=== PATIENT | female | born 1940 | race Caucasian/White ===

== ENCOUNTER 2017-08-20 06:23 | Observation (INO) | payer MEDICARE ==
[2017-08-20 07:14] LABS: #Eosinphils 0.1 thou/uL (0.0-0.7); #Lymphocytes 2.1 thou/uL (1.20-3.40); #Monocytes 0.7 thou/uL (0.11-0.59); %Basophils 0.6 % (0.0-1.0); %Eosinophils 1.7 % (0.0-10.0); %Monocytes 9.9 % (0.0-10.0); Hematocrit 38.4 % (36.0-47.0); Mean Platelet Volume 7.5 fL (7.4-10.4); Red Blood Cell (RBC) Count 3.86 mill/uL (4.20-5.40); White Blood Cell (WBC) Count 6.9 thou/uL (4.8-10.8)
[2017-08-20 07:36] LABS: ALT (SGPT) 18 U/L (8-55); AST (SGOT) 20 U/L (5-34); Alkaline Phosphatase 60 U/L (40-150); Anion Gap 10 mmol/L (10-20); BUN (Urea Nitrogen) 13 mg/dL (9.8-20.1); Bilirubin, Total 0.4 mg/dL (0.2-1.2); CK (CPK) 135 U/L (29-168); Calc. Creatinine Clearance 0 mL/min (70-130); Calcium 8.8 mg/dL (7.8-10.44); Carbon Dioxide 29 mmol/L (23-31); Chloride 105 mmol/L (98-107); Estimated GFR-MDRD 69; Globulin 2.7 g/dL (2.4-3.5); Lipase 14 U/L (8-78); Protein, Total 6.7 g/dL (6.0-8.3)
[2017-08-20 07:39] LABS: Troponin I Less than 0.010 ng/mL (< 0.028)
--- NOTE | 2017-08-20 08:20 | CT ---
CT OF BRAIN PERFORMED WITHOUT CONTRAST ENHANCEMENT: History: Headache, dizziness, and weakness. FINDINGS: There is age appropriate ventricular and sulcal prominence. There are no signs of intracerebral hemor rhage or extraaxial fluid collections. Mastoid air cells are clear. Mucosal changes noted in the ethm oid and maxillary sinuses. IMPRESSION: No acute intracranial abnormalities. POS: [facility]
--- NOTE | 2017-08-20 08:29 | RAD ---
PORTABLE CHEST: Date: 08-20-17 Provided Clinical History: Hypertension. FINDINGS: No comparison examinations are currently available. The cardiac silhouette appears mildly prominent w hich is likely at least partially on the basis of portable technique. Atherosclerosis is demonstrated . No definite focal consolidation, pleural fluid or pneumothorax apparent. If there is persistent cli nical concern, follow up PA and lateral views of the chest are recommended. IMPRESSION: As above. POS: [facility]
[2017-08-20] MEDS ORDERED: Aspirin 325 MG TAB ONE (09:21)
[2017-08-20 10:42] LABS: Magnesium 2.1 mg/dL (1.6-2.6); Phosphorus 3.3 mg/dL (2.3-4.7)
[2017-08-20 10:48] LABS: Troponin I 0.021 ng/mL (< 0.028)
--- NOTE | 2017-08-20 10:49 | CT ---
CT ANGIO NECK AND CT ANGIO HEAD: Date: 08/20/17 HISTORY: TIA. FINDINGS: CT ANGIO OF NECK: Multiple axial tomograms obtained through neck with angio protocol with multiplanar reconstructions a nd 3D postprocessing. There is common origin of the innominate and left common carotid at the arch. No stenosis at this [place]. Both common carotids are patent throughout their course with no stenosis or significant atherosclerot ic disease. On the left, there is atherosclerotic calcified plaque at the left bulb extending into the proximal l eft ICA. This produces mild stenosis in the proximal left ICA; however, the degree of stenosis does n ot appear to be hemodynamically significant by NASCET criteria (less than 50% diameter). The left ICA above the bulb is unremarkable. On the right, there is mild atherosclerotic change in the right bulb and proximal ICA. There is no st enosis seen in the right extracranial ICA> Vertebral arteries are patent. There is a dominant left vertebral. Soft Tissues: There is a heterogeneous mass involving the left lobe of the thyroid with numerous areas of low atten uation which may represent some internal cystic components. This mass is measured up to 3.5 cm AP dim ension x 3.2 cm width in the axial plane. Recommend ENT consultation and consider biopsy. Prior anterior fusion procedure in the cervical spine at C5, C6, and C7. Degenerative changes in the cervical spine. IMPRESSION: 1. Mild atherosclerotic change at the left bulb and proximal left ICA; however, no evidence of hemod ynamically significant stenosis. 2. Large, heterogeneous mass involving left lobe of thyroid. Recommend further evaluation. CT ANGIO OF HEAD: Multiple axial tomograms obtained through the head with arterial phase enhancement following angio pr otocol with multiplanar reconstructions and 3D postprocessing. The intracranial internal carotid arteries are patent with mild atherosclerotic change. The anterior cerebral arteries appear unremarkable. The middle cerebral arteries are patent. Peripheral branches appear symmetric. No evidence of focal s tenosis or occlusion. Basilar arteries patent. Posterior cerebral arteries patent. communication on the right is note d. IMPRESSION: Unremarkable CT angio of cerebral circulation. POS: [facility]
[2017-08-20] MEDS ORDERED: Polyethylene Glycol 3350 17 GM Packet PO PRN (10:56)
[2017-08-20] MEDS ORDERED: Calcium Carbonate 500 MG ChewTAB PO PRN (10:56)
[2017-08-20] MEDS ORDERED: Loratadine 10 MG TAB PO PRN (10:56)
[2017-08-20] MEDS ORDERED: Labetalol HCl 100 MG/20 ML VIAL SLOW IVP PRN (10:56)
[2017-08-20] MEDS ORDERED: Ondansetron HCl/PF 4 MG/2 ML Vial IVP PRN (10:56)
[2017-08-20] MEDS ORDERED: Acetaminophen 325 MG TAB PO PRN (10:56)
[2017-08-20] MEDS ORDERED: Eucerin (Mineral Oil/Petrolatum,White) 30 gm Jar TOP PRN (10:56)
[2017-08-20] MEDS ORDERED: Ondansetron ODT 4 MG TAB PO PRN (10:56)
[2017-08-20] MEDS ORDERED: hydrALAZINE 20 MG/ML VIAL SLOW IVP PRN (10:56)
[2017-08-20] MEDS ORDERED: Nitroglycerin 0.4 MG TAB (25 Tab Bottle) PO PRN (10:56)
[2017-08-20] MEDS ORDERED: Mag-Al 1200 mg/1200 mg/30 ML UDCUP PO PRN (10:56)
[2017-08-20] MEDS ORDERED: Senokot 8.6 MG TAB PO PRN (10:56)
[2017-08-20] MEDS ORDERED: Sodium Chloride 0.9% 1,000 ML IV SCH (10:56)
[2017-08-20 12:23] VITALS: BMI 24.7
[2017-08-20] MEDS ORDERED: Lorazepam 1 MG TAB PO SCH (12:30)
[2017-08-20] MEDS ORDERED: Lorazepam 1 MG TAB PO PRN (12:59)
[2017-08-20] MEDS ORDERED: Bisoprolol Fumarate/HCTZ 10 mg/6.25 mg Tablet PO SCH (13:30)
[2017-08-20] MEDS ORDERED: ISOVUE-370 76%-LOCM 1 ML ONE (15:41)
--- NOTE | 2017-08-20 16:00 | HP ---
DATE OF ADMISSION: 08/20/2017 PRIMARY CARE PHYSICIAN: Gail Garcia D.O. CHIEF COMPLAINT: Stroke-like symptoms. HISTORY OF PRESENT ILLNESS: Patient is a 77-year-old female with hypertension with ongoing tobacco abuse who presented to the emergency room with sudden onset of dizziness and vertigo that started this morning when she woke up around 4:30 a.m. She had difficulty balancing herself. She felt generally weak ; however, denies any focal deficits. No double vision, blurring of vision, tinnitus, hearing loss, sensory deficits or fall reported. No headache, loss of consciousness or palpitations reported. She recently had cold. She recently had upper respiratory tract infection. No similar symptoms in the past. She continues to have same symptoms; however, overall her symptoms are improving. She checked her blood pressure at home this morning which was 195/ 90. She called EMS. In the emergency room, her initial vital signs showed temperature 97.7, respirations 16, pulse of 59, blood pressure of 186/93 with O2 saturation of 96 % on room air. Initial brain CT scan was negative for acute findings. CT angiogram of the head and neck was negative for significant stenosis. She received aspirin in the emergency room. Please note that patient takes aspirin 81 mg on a daily basis. PAST MEDICAL HISTORY: 1. Hypertension. 2. Hypothyroidism. 3. Ongoing tobacco dependence. PAST SURGICAL HISTORY: Neck surgery, low back surgery, breast augmentation, right heel surgery, cholecystectomy, hysterectomy, and thyroidectomy. ALLERGIES: Statins CURRENT HOME MEDICATIONS: Aspirin 81 mg daily, bisoprolol/HCTZ 10/6.25 daily, Biotin 1 mg daily, aspirin 81 mg daily, vitamin D3 500 units daily, and levothyroxine 25 mcg daily. SOCIAL HISTORY: Patient continues to smoke less than half pack a day for more than 20 years. No alcohol or drug use. She is FULL CODE. Makes her own decisions with the help of her family. FAMILY HISTORY: Father had coronary artery bypass grafting when he was in the 70s. REVIEW OF SYSTEMS: The following complete review of systems was negative, unless otherwise mentioned in the HPI or below: Constitutional: Weight loss or gain, ability to conduct usual activities. Skin: Rash, itching. Eyes: Double vision, pain. ENT/Mouth: Nose bleeding, neck stiffness, pain, tenderness. Cardiovascular: Palpitations, dyspnea on exertion, orthopnea. Respiratory: Shortness of breath, wheezing, cough, hemoptysis, fever or night sweats. Gastrointestinal: Poor appetite, abdominal pain, heartburn, nausea, vomiting, constipation, or diarrhea. Genitourinary: Urgency, frequency, dysuria, nocturia. Musculoskeletal: Pain, swelling. Neurologic/Psychiatric: Anxiety, depression. Allergy/Immunologic: Skin rash, bleeding tendency. PHYSICAL EXAMINATION: VITAL SIGNS: As discussed above. GENERAL: A 77-year-old female in no apparent distress. HEENT: Head is atraumatic, normocephalic. Sclerae are anicteric. Moist mucous membrane, no oral lesion. NECK: Supple, no JVD appreciated. No carotid bruit. LUNGS: Clear to auscultation bilaterally. HEART: S1 and S2 present. Regular rate and rhythm. No murmurs, rubs or gallops appreciated. ABDOMEN: Soft, nontender, bowel sounds present. EXTREMITIES: No edema or calf tenderness. NEUROLOGIC: Grossly nonfocal, moves all four extremities. Power was 5/5 in all extremities. Vhnhkg-cv-oowx test was normal. PSYCHIATRIC: Alert, awake, oriented x3. SKIN: Warm and dry. LYMPH NODES: No palpable lymph nodes in the neck. PERIPHERAL VASCULAR: Radial pulses palpable bilaterally. MUSCULOSKELETAL: No joint swelling or tenderness. LABORATORY DATA AND IMAGIN. Fasting lipids showed LDL of 107, cholesterol of 174, vitamin B12 349, folic acid 10.6. Cardiac enzymes were normal. Electrolytes in normal range. CBC showed WBC 6.9 with hemoglobin 12.5. 2. EKG by my review showed sinus bradycardia without significant ST-T wave changes. 3. CT scan of the brain by my review as discussed above. Chest x-ray by my review was negative for infiltrate. IMPRESSION: 1. Transient ischemic attack. 2. Dizziness/vertigo secondary to #1. 3. Hypertension 4. Hyperlipidemia. 5. Hypothyroidism. 6. Ongoing tobacco dependence. 7. Chronic kidney disease stage 2. 8. Macrocytosis with low normal vitamin B12. The patient will be monitored in the stroke unit as a 23-hour observation. We will get an MRI of the brain as well as echocardiogram. CTA of the head and neck was negative for hemodynamically significant stenosis. We will continue aspirin for now. We will discuss with Neurology if aspirin needs to be changed to Plavix or Aggrenox. We will continue other home medications including levothyroxine and Bystolic. Gentle IV hydration due to contrast for CT angiogram of the head and neck. We will consult physical therapy and occupational therapy. Plan of care was discussed with the patient in detail. She stated understanding. No statins due to intolerance. MTDD
[2017-08-20] MEDS ORDERED: Atorvastatin Calcium 10 MG TAB PO SCH (21:00)
--- NOTE | 2017-08-20 23:10 | CON ---
DATE OF CONSULTATION: 08/20/2017 REFERRING PROVIDER: Arnoldo Lock M.D. REASON FOR CONSULTATION: Dizziness, vertigo. HISTORY OF PRESENT ILLNESS: Ms. Faith is a pleasant 77-year-old female who has been consid ered for evaluation of dizziness and vertigo. History is obtained from the patient as well as her da ughter. The patient reports that yesterday around 4:30 a.m. she woke up with the sudden onset of diz ziness and vertigo-type sensation. She had difficulty with balancing herself. She was having diffic ulty with walking and balance, which prompted her to present to the [facility] for fur ther evaluation. She did not have any headache, diplopia, blurry vision, loss of vision, tinnitus, h earing loss, numbness, tingling or weakness on face, upper and lower extremities. She states that wh en EMS arrived, her blood pressure was noted to be significantly elevated, it was noted to be 226 sys tolic with 105 diastolic. She states that her symptoms are getting better, although she does complai n of feeling uneasy at times. She has been walking back and forth to the bathroom without having any fall. PAST MEDICAL HISTORY: Significant for hypertension, hypothyroidism. PAST SURGICAL HISTORY: Significant for neck surgery, lower back surgery, breast augmentation, right heel surgery, cholecystectomy, hysterectomy, and thyroidectomy. CURRENT MEDICATIONS: Please review MAR. ALLERGIES: No known drug allergies. SOCIAL HISTORY: She smokes 1/2 pack per day. She denies alcohol or illicit drug use. REVIEW OF SYSTEMS: As mentioned in the HPI, otherwise negative. PHYSICAL EXAMINATION: VITAL SIGNS: Blood pressure 190/79, pulse of 49, temperature of 98.6, respirations of 18, O2 sats of 97% on room air. GENERAL: Well-developed, well-nourished female in no apparent distress. RESPIRATORY: Clear to auscultation bilaterally. CARDIOVASCULAR: Regular rate and rhythm. NEUROLOGIC: Mental status: The patient is awake, alert, oriented x3. Speech and language: Fluent speech. Cranial nerves: Pupils are 3 mm and reactive. Visual nichols are intact. Extraocular muscl es are intact. No nystagmus is noted. Face is symmetric. Tongue and uvula are midline. Motor exam showed normal tone and bulk with 5/5 strength in upper and lower extremities. Sensory: Sensation i s intact and symmetric. Deep tendon reflexes 2+ reflexes in both upper and lower extremities. Claudia ski: Plantar responses flexion bilaterally. Coordination intact to [id number]-[id number] tapping bilat erally. LABORATORY DATA: Reviewed, which included CBC, CMP, lipid profile, B12, folate, which is all essenti ally normal. IMPRESSION: 1. Hypertensive urgency. 2. Dizziness and vertigo, likely due to #1. ASSESSMENT AND PLAN: Ms. Faith is a pleasant 77-year-old female who presented with the epi sode of dizziness, vertigo, nausea. She had her blood pressure to be extremely high. It was noted b y EMS to have the blood pressure of 226/100, this is likely suggestive hypertensive emergency. At th is time, I would recommend continuing her on aspirin 81 mg daily for secondary stroke prevention. I would recommend obtaining MRI brain without contrast if MRI cannot be obtained due to machine being d own, then she can be discharged to home with outpatient appointment in my clinic and MRI can be done as an outpatient. Continue supportive care. Continue current medical management. I will be happy t o see the patient in my clinic post-discharge. Thank you for the consultation.
[2017-08-21] MEDS ORDERED: cloNIDine 0.1 MG TAB PO PRN (05:58)
[2017-08-21] MEDS ORDERED: Labetalol HCl 100 MG/20 ML VIAL SLOW IVP PRN (05:58)
[2017-08-21] MEDS ORDERED: hydrALAZINE 20 MG/ML VIAL SLOW IVP PRN (05:58)
[2017-08-21] MEDS ORDERED: Levothyroxine Sodium 25 MCG TAB PO SCH (06:00)
[2017-08-21] MEDS ORDERED: Enoxaparin Sodium 40 MG/0.4 ML SYRINGE SC SCH ×2 (09:00→21:00)
[2017-08-21] MEDS ORDERED: Aspirin 325 mg Enteric Coated Tablet PO SCH (09:00)
[2017-08-21] MEDS ORDERED: Bisoprolol Fumarate/HCTZ 10 mg/6.25 mg Tablet PO SCH (09:00)
[2017-08-21] MEDS ORDERED: NIFEdipine XL 30 MG TAB PO SCH (13:45)
--- NOTE | 2017-08-21 15:24 | DIS ---
DATE OF DISCHARGE: 08/21/2017 DISCHARGE DISPOSITION: Home. FOLLOWUP: 1. Follow up with primary care physician, Dr. Gail Garcia, in 1 week. 2. Follow up with Neurology, Dr. Oconnor. 3. Follow up with Dr. Nicci Lainez for blood pressure management. ALLERGIES: The patient is allergic to STATINS. The patient was seen and examined on the day of discharge. Denies any new complaints, no chest pain, shortness of breath, palpitations. No new focal deficits. DISCHARGE MEDICATIONS: 1. Amlodipine 5 mg daily. Patient was advised to increase the dose to twice a day if blood pressure remains uncontrolled. 2. Aspirin 81 mg daily. 3. Bisoprolol/HCTZ 5/6.25 (dose reduced). 4. Levothyroxine 25 mcg daily. 5. Vitamin D3 500 units daily. 6. Biotin 1 mg daily. INPATIENT CONSULTANTS: Neurology, Dr. Corina Oconnor. BRIEF HOSPITAL COURSE: The patient is a 77-year-old female with hypertension and hypothyroidism, who presented to the hospital with stroke-like symptoms. Her blood pressure at home was 195/90. Please refer to the history and physical dated 08/20/2017 for further details. The patient was admitted to the hospital with a diagnosis of hypertensive urgency with transient isch emic attack. Her initial CT scan of the brain was negative. CT angiogram of the head and neck was n egative for hemodynamically significant stenosis. Echocardiogram showed left ventricular ejection fr action of 60%-65% with diastolic dysfunction. There was also tpor-sp-ukwvonbm pulmonary regurgitatio n. She was seen by Neurology, Dr. Oconnor. Dr. Oconnor recommended to continue aspirin for now. MRI coul d not be done due to technical reasons. Patient will follow up with Dr. Oconnor as outpatient for follo wup as well as MRI. She has been cleared by Neurology for discharge. FINAL DIAGNOSES: 1. Transient ischemic attack. 2. Hypertensive urgency. 3. Dizziness/vertigo secondary to hypertensive urgency. 4. History of hypertension. 5. Hyperlipidemia. 6. Hypothyroidism. 7. Statin intolerance. 8. Ongoing tobacco dependence. The patient was counseled to quit smoking. 9. Chronic kidney disease, stage 2. 10. Macrocytosis. Plan of care was discussed with the patient. She stated understanding.
[2017-08-21 15:47] VITALS: TEMP 97.6
[2017-08-21 17:14] VITALS: BP 147/66
[2017-08-22] MEDS ORDERED: NIFEdipine XL 30 MG TAB PO SCH (09:00)
== END 2017-08-21 17:23 | disposition home or self-care (01) ==
LOC: ERS 06:23 → 2SE 10:04
PROVIDERS: ADMIT Internal Medicine; ATTEND Internal Medicine
DX: G45.9 Transient cerebral ischemic attack, unspecified (principal); I16.0 Hypertensive urgency; R42 Dizziness and giddiness; E78.5 Hyperlipidemia, unspecified; E03.9 Hypothyroidism, unspecified; I12.9 Hypertensive chronic kidney disease with stage 1 through stage 4 chronic kidney disease, or unspecified chronic kidney disease; N18.2 Chronic kidney disease, stage 2 (mild); D75.89 Other specified diseases of blood and blood-forming organs; F17.210 Nicotine dependence, cigarettes, uncomplicated; Z88.8 Allergy status to other drugs, medicaments and biological substances; Z79.82 Long term (current) use of aspirin; Z79.899 Other long term (current) drug therapy; Z90.49 Acquired absence of other specified parts of digestive tract; Z90.710 Acquired absence of both cervix and uterus; Z98.890 Other specified postprocedural states; Z82.49 Family history of ischemic heart disease and other diseases of the circulatory system
CPT/HCPCS: 70450; 70496; 70498; 71010; 80053; 80061; 82550; 82553; 82607; 82746; 83690; 83735; 84100; 84484 ×2; 85025; 93005; 93306; 94760; 96374; 97139 ×3; 99285; G0378; G8978; G8979; G8980; G8987; G8988; G8989; 36415; J0360

== ENCOUNTER 2017-09-08 10:00 | Outpatient (CLI) | payer MEDICARE ==
--- NOTE | 2017-09-08 14:39 | MRI ---
BRAIN MRI WITHOUT CONTRAST: Date: 09/08/17 HISTORY: Dizziness and numbness. Transient ischemic attack. COMPARISON: None. CORRELATION: CT angiogram of head dated 08/20/17. TECHNIQUE: Brain MRI is performed without intravenous Gadolinium administration. Multisequential, multiplanar im aging is performed. FINDINGS: Appropriate T1 marrow signal intensity of the calvarium. Midline brain parenchymal structures are unr emarkable. Central arterial flow-voids are maintained. Absent restricted diffusion. Minimal mucosal thickening of the paranasal sinuses. Adequate mastoid air cell aeration. There are scattered white matter hyperintensities on the axial T2 and FLAIR sequence due to chronic s mall vessel ischemic changes. No hemorrhage on the axial gradient echo sequence. Brain volume is age-appropriate. No parenchymal mass, mass effect, or midline shift. IMPRESSION: 1. No restricted diffusion. No acute infarction. 2. No hemorrhage. 3. Age-appropriate atrophy. 4. Chronic small vessel ischemic changes of the white matter. POS: [facility]
== END 2017-09-08 10:01 | disposition home or self-care (01) ==
LOC: TBSIIMAG 10:00
PROVIDERS: ATTEND Psychiatry & Neurology Neurology
DX: R42 Dizziness and giddiness (principal); R20.0 Anesthesia of skin; I67.82 Cerebral ischemia
CPT/HCPCS: 70551

== ENCOUNTER 2018-01-19 22:30 | Observation (INO) | payer MEDICARE ==
[2018-01-20 02:02] LABS: CKMB 1.8 ng/mL (0-6.6); Troponin I Less than 0.010 ng/mL (< 0.028)
[2018-01-20] MEDS ORDERED: Calcium Carbonate 500 MG ChewTAB PO PRN (03:55)
[2018-01-20] MEDS ORDERED: hydrALAZINE 20 MG/ML VIAL SLOW IVP PRN (03:55)
[2018-01-20] MEDS ORDERED: Loratadine 10 MG TAB PO PRN (03:55)
[2018-01-20] MEDS ORDERED: cloNIDine 0.1 MG TAB PO PRN (03:55)
[2018-01-20] MEDS ORDERED: Acetaminophen 325 MG TAB PO PRN (03:55)
[2018-01-20] MEDS ORDERED: Ondansetron HCl/PF 4 MG/2 ML Vial IVP PRN ×2 (03:55)
[2018-01-20] MEDS ORDERED: Diabetic Tussin 200 MG/10 ML UDCUP PO PRN (03:55)
[2018-01-20] MEDS ORDERED: Mag-Al 1200 mg/1200 mg/30 ML UDCUP PO PRN (03:55)
[2018-01-20] MEDS ORDERED: traMADol HCl 50 MG TAB PO PRN (03:55)
[2018-01-20] MEDS ORDERED: Nitroglycerin 0.4 MG TAB (25 Tab Bottle) SL PRN (03:55)
[2018-01-20] MEDS ORDERED: Senokot 8.6 MG TAB PO PRN (03:55)
[2018-01-20] MEDS ORDERED: Benzonatate 100 MG CAP PO PRN (03:55)
[2018-01-20] MEDS ORDERED: Bisacodyl 5 MG TAB PO PRN (03:55)
[2018-01-20 04:19] LABS: Troponin I Less than 0.010 ng/mL (< 0.028)
--- NOTE | 2018-01-20 07:42 | HP ---
PRIMARY CARE PHYSICIAN: Gail Gacria D.O. CHIEF COMPLAINT: Palpitations and chest discomfort. HISTORY OF PRESENTING ILLNESS: Ms. Faith is a 77-year-old female with past medical history of hypert ension, dyslipidemia, hypothyroidism, and statin intolerance, who came to the emergency room with abo ve-mentioned complaint. History is mainly obtained by the patient herself and electronic medical rec ords have been reviewed. She was last admitted to our facility in 07/2017 at which time she underwen t workup for TIA. At that time, she underwent evaluation with CT angio and echocardiogram, which were both unremarkable . She was found to have hypertensive urgency, but was quite bradycardic. Her bisoprolol/hydrochloro thiazide dose was decreased in half because of the bradycardia and Norvasc was increased for high blo od pressure. She came to the emergency room today with multiple days' complaint of palpitations. She reports that this has actually been ongoing since 09/2017. She describes as that a feeling of a faster heart rat e as well as missed beats and is associated with chest discomfort and some shortness of breath. She describes these symptoms as quite debilitating and happening almost on a daily basis. Her heart rate ; however, at home has been running in the 50s. She thinks that reducing the dose of her bisoprolol is responsible for these symptoms. She has contacted her primary care physician and was referred to Cardiology. She has an upcoming appointment with Dr. Dill on the 01/28. Because of persistent of these symptoms she, however, presented to the ER today. In the emergency room upon presentation, she was hemodynamically stable. She is noticed to be in bradycardia with heart rate anywhere from 48-60 s. Her initial evaluation included a chest x-ray which was unremarkable. A 12-lead EKG which shows sinus bradycardia, otherwise no acute changes. Blood work which is essentially unremarkable. She is now being admitted for further workup and rule out ACS because of her complaints of chest discomfort . PAST MEDICAL HISTORY: 1. Hypertension. 2. Dyslipidemia. 3. Statin intolerance. 4. Hypothyroidism. 5. Tobacco abuse. PAST SURGICAL HISTORY: Neck surgery, back surgery, breast augmentation, right heel surgery, cholecys tectomy, hysterectomy, and thyroidectomy. ALLERGIES: STATINS. SOCIAL HISTORY: She has smoked for more than 20 years. She has no history of drug or alcohol abuse. CODE STATUS: FULL CODE. Discussed with the patient. FAMILY HISTORY: Significant for father having coronary artery bypass grafting in his 70s. CURRENT MEDICATIONS: As per the ER record include; aspirin 81 mg daily, levothyroxine 25 mcg daily, bisoprolol/hydrochlorothiazide the dose was reduced to half and she is on 5/6.25 mg daily, and amlodi pine 5 mg daily. The medications were further need to be reconciled. REVIEW OF SYSTEMS: The following complete review of systems was negative, unless otherwise mentioned in the HPI or below: Constitutional: Weight loss or gain, ability to conduct usual activities. Sk in: Rash, itching. Eyes: Double vision, pain. ENT/Mouth: Nose bleeding, neck stiffness, pain, te nderness. Cardiovascular: Palpitations, dyspnea on exertion, orthopnea. Respiratory: Shortness of breath, wheezing, cough, hemoptysis, fever or night sweats. Gastrointestinal: Poor appetite, abdom inal pain, heartburn, nausea, vomiting, constipation, or diarrhea. Genitourinary: Urgency, frequenc y, dysuria, nocturia. Musculoskeletal: Pain, swelling. Neurologic/Psychiatric: Anxiety, depressio n. Allergy/Immunologic: Skin rash, bleeding tendency. It is negative except for those mentioned in the history and physical. LABORATORY DATA: CBC is unremarkable. Serum chemistries show blood sugar of 113, otherwise unremark able. Creatinine kinase 202 and CK-MB 1.8. Troponin less than 0.010 x2. Chest x-ray by my review h as no evidence to suggest any pulmonary effusion, edema or infiltrate. A 12-lead EKG by my review sh ows sinus bradycardia without any acute ST or T-wave changes, shows possible left atrial enlargement. Heart rate 51 beats per minute. PHYSICAL EXAMINATION: VITAL SIGNS: Blood pressure upon presentation 192/68, most recent blood pressure 140/61, heart rate 60, respirations 18, and saturating 97% on room air. GENERAL: No acute distress. Awake, alert, oriented x3. HEENT: Mucous membrane is moist and pink. No oropharyngeal exudate or erythema. Head is normocepha lic, atraumatic. Pupils are equal, reactive to light and accommodation. Extraocular movements are i ntact. NECK: Supple, without any lymphadenopathy, JVD or bruit. CHEST: Clear to auscultation without any wheezing, rales or rhonchi. CARDIOVASCULAR: Rate and rhythm is regular, without any murmurs, rubs, or gallops. ABDOMEN: Soft, nontender, nondistended, positive bowel sounds. EXTREMITIES: Free of any cyanosis, clubbing, or edema. NEUROLOGIC: Nonfocal. SKIN: Free of any rashes or bruises. I feel warm and dry to touch. PSYCHIATRIC: Normal affect. ASSESSMENT AND PLAN: 1. Palpitations and chest discomfort. The patient most likely is having symptoms since her beta blo ckade has been reduced. She is actually bradycardic and at this time. No other terence blocking agent s are advised. She will be admitted to rule out ACS and otherwise, she will keep up her upcoming ivette ointment with Cardiology for further recommendations regarding medical management of her palpitations . She seems to be having PVCs and I have reassured her that these are innocuous. We will continue t o trend serial cardiac enzymes and continue her aspirin for now. Recheck her TSH, though she reports that her primary care physician is keeping it up-to-date. 2. Hypertensive urgency, most likely secondary to anxiety and palpitations. Her blood pressure is u nder better control for now. We will continue amlodipine for now, but hold bisoprolol at this time u ntil further evaluation. 3. Hypothyroidism. We will restart her levothyroxine and check a TSH. 4. Code status: FULL CODE. Discussed with the patient. 5. Add deep venous thrombosis prophylaxis. DISPOSITION: Ms. Faith is currently being admitted in observation status for workup for chest discom fort and rule out ACS. Further management will depend upon her clinical course.
[2018-01-20 08:54] VITALS: BMI 25.1
[2018-01-20] MEDS ORDERED: Amlodipine 5 MG TAB PO SCH (09:00)
[2018-01-20] MEDS ORDERED: Enoxaparin Sodium 40 MG/0.4 ML SYRINGE SC SCH (09:00)
[2018-01-20] MEDS ORDERED: Regadenoson 0.4 MG/5 ML SYRINGE ONE (13:01)
--- NOTE | 2018-01-20 13:29 | NM ---
CARDIAC SPECT WITH EF AND WALL MOTION: HISTORY: A 77-year-old female with a history of stroke, hypertension, dyslipidemia, a family history of raymond ry artery disease, and chest pain. TECHNIQUE: The patient was injected with 29 millicuries technetium 99m sestamibi intravenously for stress images , and the patient was injected with 9 millicuries of technetium 99m sestamibi intravenously for rest images. FINDINGS: Multiple SPECT images in the short axis, vertical long axis, and horizontal long axis demonstrate no scan evidence for infarct or ischemia. TID 1.112. LHR 0.43. EDV 83 mL. EF 73%. MYOCARDIAL PERFUSION WALL MOTION: Normal. IMPRESSION: Normal cardiac SPECT with ejection fraction and wall motion. POS: [facility]
[2018-01-20 15:35] VITALS: BP 133/61; TEMP 97.8
--- NOTE | 2018-01-21 01:36 | DIS ---
DATE OF ADMISSION: 01/20/2018 DATE OF DISCHARGE: 01/20/2018 DISCHARGE DIAGNOSES: 1. Chest pain, non-cardiac. 2. Palpitations, question of premature atrial contractions. 3. Hypertensive urgency, resolved. 4. Hypothyroidism, stable. CONSULTATIONS: None. PERTINENT LABORATORY AND X-RAY FINDINGS: Basic metabolic profile within normal limits. Troponin I n egative x3. TSH 1.22. CBC within normal limits. Cardiolite stress test dated 01/20/2018 showed no evidence of reversible or fixed ischemia with calculated ejection fraction of 73%. HOSPITAL COURSE: Patient was observed on the telemetry unit after initially presenting with chest pa in and palpitations. The patient was noted with likely hypertensive urgency managed medically and st able throughout the hospital course. The patient underwent cardiac workup including serial troponin I which was negative x3. The patient proceeded with Cardiolite stress testing showing no evidence fo r reversible or fixed ischemia with calculated ejection fraction of 73%. Telemetry monitoring showed sinus bradycardia with heart rates ranging in the 40s to 60s with no evidence of acute arrhythmia or dysrhythmia. Screening metabolic survey was essentially unremarkable and patient's blood pressure r emained stable through the hospital course. The patient is overall clinically stable. I have examin ed the patient at the time of discharge and discussed laboratory findings, x-ray results and stress t est findings. The patient verbalizes understanding and need for followup. The patient overall clini sonido stable and ready for discharge 01/20/2018. DISCHARGE MEDICATIONS: 1. Amlodipine 5 mg one tab p.o. daily. 2. Enteric-coated aspirin 81 mg 1 tab p.o. daily. 3. Biotin 1 mg p.o. daily. 4. Bisoprolol/hydrochlorothiazide 5/6.25 mg 1 tab p.o. daily. 5. Vitamin D3 of 500 units p.o. daily. 6. Levothyroxine 25 mcg p.o. daily. FOLLOWUP: Patient will follow up with Dr. Gail Garcia within 7 days of discharge. The patient w ill follow up with Dr. Omar Dill with [facility] on 01/28/2018. CONDITION ON DISCHARGE: Stable. ACTIVITY: Ad omar. DIET: Heart healthy. CODE STATUS: FULL. DISPOSITION: Home 01/20/2018.
== END 2018-01-20 16:30 | disposition home or self-care (01) ==
LOC: ERS 22:30 → ERHOLD 01-20 00:30 → 2SW 01-20 08:21
PROVIDERS: ADMIT Internal Medicine; ATTEND Internal Medicine
DX: R07.89 Other chest pain (principal); R00.2 Palpitations; I16.0 Hypertensive urgency; I10 Essential (primary) hypertension; E78.5 Hyperlipidemia, unspecified; E89.0 Postprocedural hypothyroidism; F17.200 Nicotine dependence, unspecified, uncomplicated; Z88.8 Allergy status to other drugs, medicaments and biological substances; Z79.82 Long term (current) use of aspirin; Z79.899 Other long term (current) drug therapy; Z82.49 Family history of ischemic heart disease and other diseases of the circulatory system; Z98.890 Other specified postprocedural states
CPT/HCPCS: 78452; 82553; 84443; 84484 ×2; 93005; 93017; 97139; 99285; 99406; A9500; G0378 ×2; 36415; J2785